=== PATIENT | female | born 1995 | race Caucasian/White ===

== ENCOUNTER → 2018-03-14 | Outpatient (CLI) | payer BC | LOC: M WUC 11:52 | DX: S93.432A Sprain of tibiofibular ligament of left ankle, initial encounter (principal); X58.XXXA Exposure to other specified factors, initial encounter; Y92.89 Other specified places as the place of occurrence of the external cause; Y99.9 Unspecified external cause status; Y93.9 Activity, unspecified | CPT/HCPCS: 73610 ==

== ENCOUNTER 2018-06-21 17:12 | Inpatient (IN) | payer SELFPAY, BC ==
[2018-06-21 19:11] LABS: HEMATOCRIT 41.3 % (36.0-47.0); HEMOGLOBIN 13.8 g/dl (12.0-15.5); MEAN CORPUSCULAR HEMOGLOBIN 30.5 pg (27.0-33.0); MEAN CORPUSCULAR HGB CONC 33.4 g/dl (32.0-36.5); MEAN CORPUSCULAR VOLUME 91.4 fl (80.0-96.0); PLATELET COUNT, AUTOMATED 277 10^3/uL (150-450); RED BLOOD COUNT 4.52 10^6/uL (4.00-5.40); RED CELL DISTRIBUTION WIDTH 12.6 % (11.5-14.5); WHITE BLOOD COUNT 10.6 10^3/uL (4.0-10.0)
[2018-06-21 19:31] LABS: AMPHETAMINES LEVEL URINE NEGATIVE (NEGATIVE); BARBITURATES URINE NEGATIVE (NEGATIVE); BENZODIAZEPINES URINE NEGATIVE (NEGATIVE); CANNABINOIDS URINE POSITIVE (NEGATIVE); COCAINE METABOLITE URINE NEGATIVE (NEGATIVE); METHADONE URINE NEGATIVE (NEGATIVE); OPIATES URINE POSITIVE (NEGATIVE); PHENCYCLIDINE URINE NEGATIVE (NEGATIVE)
[2018-06-21 19:48] LABS: ACETAMINOPHEN LEVEL < 2.0 UG/ML (10.0-30.0); ALBUMIN 3.8 GM/DL (3.2-5.2); ALBUMIN/GLOBULIN RATIO 1.15 (1.00-1.93); ALKALINE PHOSPHATASE 63 U/L (45-117); ALT/SGPT 21 U/L (12-78); ANION GAP 7 MEQ/L (8-16); AST/SGOT 12 U/L (7-37); BILIRUBIN,DIRECT 0.2 MG/DL (0.0-0.2); BILIRUBIN,TOTAL 0.5 MG/DL (0.2-1.0); BLOOD UREA NITROGEN 9 MG/DL (7-18); CALCIUM LEVEL 8.6 MG/DL (8.5-10.1); CARBON DIOXIDE LEVEL 28 MEQ/L (21-32); CHLORIDE LEVEL 107 MEQ/L (98-107); CREATININE FOR GFR 0.75 MG/DL (0.55-1.30); ETHYL ALCOHOL (ETHANOL) 0.003 % (0.000-0.010); GLOMERULAR FILTRATION RATE > 60.0 (>60); GLUCOSE, FASTING 90 MG/DL (70-100); POTASSIUM SERUM 4.1 MEQ/L (3.5-5.1); SALICYLATE LEVEL 2.9 MG/DL (5.0-30.0); SODIUM LEVEL 142 MEQ/L (136-145); THYROID STIMULATING HORMONE 0.881 uIU/ML (0.358-3.740); TOTAL PROTEIN 7.1 GM/DL (6.4-8.2)
[2018-06-21] MEDS: ACETAMINOPHEN TAB 650MG DOSE (2X325MG) PO ×2 (20:12→23:51)
[2018-06-21] MEDS ORDERED: MOM 30ML SUSPENSION UDC PO (21:45)
[2018-06-21] MEDS ORDERED: LORazepam 1 MG TAB PO (21:45)
[2018-06-21] MEDS ORDERED: MAALOX 30 ML SUSP *UDC PO (21:45)
[2018-06-21] MEDS ORDERED: LORazepam 2 MG TAB PO (21:45)
[2018-06-21] MEDS: THIAMINE 100 MG TAB PO (21:47)
[2018-06-22] MEDS: FOLIC ACID 1 MG TAB PO (08:51)
[2018-06-22] MEDS: THIAMINE 100 MG TAB PO ×2 (08:51→21:45)
[2018-06-22] MEDS: MULTIVITAMINS/MINERALS THERAP 1 TAB PO (08:51)
[2018-06-22 11:30] LABS: CONTROL LINE HCG INT CTR LINE PRESENT; HCG, SERUM QUALITATIVE NEGATIVE (NEGATIVE)
[2018-06-22] MEDS: ACETAMINOPHEN TAB 650MG DOSE (2X325MG) PO ×2 (15:24→21:49)
[2018-06-22] MEDS: IBUPROFEN 400 MG TAB PO (16:11)
[2018-06-23 07:06] LABS: HEMATOCRIT 42.6 % (36.0-47.0); HEMOGLOBIN 13.9 g/dl (12.0-15.5); MEAN CORPUSCULAR HEMOGLOBIN 30.4 pg (27.0-33.0); MEAN CORPUSCULAR HGB CONC 32.6 g/dl (32.0-36.5); MEAN CORPUSCULAR VOLUME 93.2 fl (80.0-96.0); PLATELET COUNT, AUTOMATED 255 10^3/uL (150-450); RED BLOOD COUNT 4.57 10^6/uL (4.00-5.40); RED CELL DISTRIBUTION WIDTH 12.5 % (11.5-14.5); WHITE BLOOD COUNT 7.8 10^3/uL (4.0-10.0)
[2018-06-23] MEDS: FOLIC ACID 1 MG TAB PO (08:37)
[2018-06-23] MEDS: MULTIVITAMINS/MINERALS THERAP 1 TAB PO (08:37)
[2018-06-23] MEDS: THIAMINE 100 MG TAB PO ×2 (08:37→23:00)
[2018-06-23] MEDS: ACETAMINOPHEN TAB 650MG DOSE (2X325MG) PO (12:49)
[2018-06-23] MEDS: NORCO, ANEXSIA 5/325MG TABLET (HYDROcodone/ACETAMINOPHEN) PO ×2 (17:06→23:09)
[2018-06-24] MEDS: FOLIC ACID 1 MG TAB PO (08:13)
[2018-06-24] MEDS: THIAMINE 100 MG TAB PO (08:13)
[2018-06-24] MEDS: MULTIVITAMINS/MINERALS THERAP 1 TAB PO (08:13)
[2018-06-24] MEDS: NORCO, ANEXSIA 5/325MG TABLET (HYDROcodone/ACETAMINOPHEN) PO ×3 (11:43→23:54)
[2018-06-24] MEDS: traZODone 50 MG TAB PO (23:54)
[2018-06-25] MEDS: FOLIC ACID 1 MG TAB PO (09:00)
[2018-06-25] MEDS: MULTIVITAMINS/MINERALS THERAP 1 TAB PO (09:00)
[2018-06-25] MEDS: NORCO, ANEXSIA 5/325MG TABLET (HYDROcodone/ACETAMINOPHEN) PO ×3 (09:52→22:38)
[2018-06-25] MEDS: traZODone 50 MG TAB PO (21:20)
[2018-06-26] MEDS: MULTIVITAMINS/MINERALS THERAP 1 TAB PO (08:20)
[2018-06-26] MEDS: FOLIC ACID 1 MG TAB PO (08:21)
[2018-06-26] MEDS: NORCO, ANEXSIA 5/325MG TABLET (HYDROcodone/ACETAMINOPHEN) PO (08:23)
== END 2018-06-26 09:50 | disposition home or self-care (01) | DRG 754 ==
LOC: M ED 17:12 → M ED INP 21:34 → M PSY 22:25
DX: F32.9 Major depressive disorder, single episode, unspecified (principal); D72.829 Elevated white blood cell count, unspecified; F64.9 Gender identity disorder, unspecified; F10.20 Alcohol dependence, uncomplicated; S61.512A Laceration without foreign body of left wrist, initial encounter; Z91.5 Personal history of self-harm; X78.1XXA Intentional self-harm by knife, initial encounter; Y93.89 Activity, other specified; Y92.833 Campsite as the place of occurrence of the external cause

== ENCOUNTER 2021-07-06 15:20 | Emergency (ER) | payer MEDICAID, OTHER ==
[~2021-07-06] VITALS: Ht 157.5 cm; Wt 77.3 kg
[~2021-07-06 15:20] MED LIST: HYDROCODONE-ACETAMIN; NORC1TAB7 PO
[2021-07-06 15:21] VITALS: BP 148/67
[2021-07-06] MEDS ORDERED: ALBU8.5H (15:52)
[2021-07-06] MEDS ORDERED: HYDR-3363 (15:52)
[2021-07-06] MEDS ORDERED: OXYC1TAB23 (15:52)
[2021-07-06] MEDS ORDERED: AMIT25TA17 (15:52)
== END 2021-07-06 19:51 | disposition left against medical advice (07) ==
LOC: M ED 15:20
DX: G89.18 Other acute postprocedural pain (principal); F17.200 Nicotine dependence, unspecified, uncomplicated; Z53.20 Procedure and treatment not carried out because of patient's decision for unspecified reasons; Z91.011 Allergy to milk products